=== PATIENT | female | born 1985 | race Caucasian/White ===

== ENCOUNTER 2023-10-29 20:48 | Emergency (ER) | payer MEDICAID ==
[~2023-10-29] VITALS: Ht 167.6 cm; Wt 56.7 kg
[2023-10-29] MEDS ORDERED: predniSONE 20 MG TABLET ONE (22:19)
[2023-10-29] MEDS ORDERED: diphenhydrAMINE HCL ELIX 25 MG/10 ML UDC ONE (22:19)
[2023-10-29] MEDS: DIPHENHYDRAMINE HCL 12.5 MG/5 ML UDC PO ONE (22:20)
[2023-10-29] MEDS: predniSONE 50 MG TABLET PO ONE (22:20)
[2023-10-29 23:07] VITALS: BP 115/71; TEMP 98.4; O2SAT 100
== END 2023-10-29 23:07 | disposition home or self-care (01) ==
LOC: ER 20:57
DX: R07.89 Other chest pain (principal); R05.9 Cough, unspecified; F17.200 Nicotine dependence, unspecified, uncomplicated; Z60.2 Problems related to living alone
CPT/HCPCS: 99283; 71045; 93005; Q0163 ×2; J7512